=== PATIENT | male | born 2000 | race Caucasian/White ===

== ENCOUNTER 2021-04-20 23:40 | Emergency (ER) | payer OTHER ==
[~2021-04-20] VITALS: Ht 180.3 cm; Wt 68.0 kg
[2021-04-20 23:40] VITALS: BP 150/62
--- NOTE | 2021-04-20 23:47 | NUR ---
PT BIBA BLS TO ER BED 02
--- NOTE | 2021-04-20 23:50 | NUR ---
[facility] at bedside.
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
--- NOTE | 2021-04-21 00:06 | NUR ---
Cleaned wound with NSS.
--- NOTE | 2021-04-21 00:21 | NUR ---
Dr. Burns at bedside to exam patient.
--- NOTE | 2021-04-21 00:30 | NUR ---
Patient 's family at bedside.
[2021-04-21] MEDS ORDERED: ONDANSETRON 4 MG/2 ML VIAL IVP ONE (00:45)
[2021-04-21] MEDS ORDERED: MORPHINE SULFATE 2 MG/ML SYR IVP ONE (00:45)
--- NOTE | 2021-04-21 01:11 | NUR ---
X-ray at bedside.
--- NOTE | 2021-04-21 01:14 | NUR ---
Patient transfer to CT scan via gurney with technology consultant.
--- NOTE | 2021-04-21 01:35 | NUR ---
Patient came back from CT scan.
[2021-04-21 01:52] LABS: CARBON DIOXIDE 25.9 mmol/L (21-32); CREATININE 0.9 mg/dL (0.6-1.3); POTASSIUM 3.9 mmol/L (3.5-5.1); TOTAL BILIRUBIN 0.6 mg/dL (0.0-1.0)
[2021-04-21 01:55] LABS: HEMATOCRIT 43.9 % (36-52); HEMOGLOBIN 14.9 g/dL (12.0-18.0); MEAN CORPUSCULAR HEMOGLOBIN 28 pg (27-31); MEAN CORPUSCULAR HGB CONC 34 g/dL (33-37); MEAN CORPUSCULAR VOLUME 82.6 fL (80-94); PLATELET COUNT (AUTO) 25 K/uL (140-450); RED BLOOD CELL COUNT(AUTO) 5.32 MIL/uL (4.20-6.10); RED CELL DISTRIBUTION WIDTH 14.4 % (11.6-13.7); WHITE BLOOD COUNT (AUTO) 15.4 K/uL (4.5-11.0)
[2021-04-21 01:56] LABS: EOSINOPHILS # (AUTO) 1.2 K/uL (0-0.4); LYMPHOCYTES # (AUTO) 0.8 K/uL (2.0-11.5); MONOCYTES # (AUTO) 0.1 K/uL (0.8-1.0); MONOCYTES % (AUTO) 0.5 % (1.7-9.3); NEUTROPHILS # (AUTO) 13.4 K/uL (1.8-7.7); NEUTROPHILS % (AUTO) 86.9 % (42.2-75.2)
--- NOTE | 2021-04-21 02:50 | NUR ---
Re-position patient.
--- NOTE | 2021-04-21 03:05 | NUR ---
Patient appears to be resting comfortably in bed. Vital Signs within normal limits. Respirations even and unlabored.
--- NOTE | 2021-04-21 03:14 | NUR ---
Report given ADAM Smith, and endorse care of patient.
--- NOTE | 2021-04-21 03:15 | NUR ---
REPORT RECIEVED REPORT FROM ADAM MOORE. ASSUMED CARE OF PT AT THIS TIME. ALL NEEDS MET. WILL CONTINUE TO MONITOR.
[2021-04-21] MEDS ORDERED: IBUP-2218 PO (03:40)
--- NOTE | 2021-04-21 03:53 | NUR ---
LEFT ANKLE WRAPPED WITH YUKI BANDAGE AND PROVIDED PATIENT WITH CRUTCHES PER DR. MARR.
--- NOTE | 2021-04-21 04:00 | NUR ---
YUKI BANDAGE REMOVED PER MD AND APPLIED SPLINT ON LEFT ANKLE.
== END 2021-04-21 04:37 | disposition home or self-care (01) ==
LOC: MED 23:40
DX: S00.212A Abrasion of left eyelid and periocular area, initial encounter (principal); M25.572 Pain in left ankle and joints of left foot; M54.2 Cervicalgia; M54.6 Pain in thoracic spine; Z88.6 Allergy status to analgesic agent; V89.2XXA Person injured in unspecified motor-vehicle accident, traffic, initial encounter; Y93.89 Activity, other specified; Y92.828 Other wilderness area as the place of occurrence of the external cause; Y99.8 Other external cause status
CPT/HCPCS: 29125; 36415; 70450; 72125; 72128; 72131; 73610; 80053; 85025; 96374; 96375; 99284; J2270; J2405; Q0092

== ENCOUNTER 2023-09-26 06:05 | Emergency (ER) | payer SELFPAY ==
[~2023-09-26] VITALS: Ht 177.8 cm; Wt 72.6 kg
[~2023-09-26 06:05] MED LIST: IBUP-2218 PO
[2023-09-26 06:16] VITALS: BP 126/48; PULSE 92; RESP 16; TEMP 97.4; O2SAT 99
[2023-09-26] MEDS: ONDANSETRON 4 MG ODT PO ONE (07:09)
[2023-09-26] MEDS: KETOROLAC 30 MG/ML VIAL IM ONE (07:09)
[2023-09-26] MEDS: LOPERAMIDE 2 MG CAP PO ONE (07:09)
[2023-09-26 07:39] LABS: BASOPHILS % (AUTO) 0.1 % (0.0-2.0); EOSINOPHILS % (AUTO) 0.3 % (0.0-4.0); HEMATOCRIT 45.1 % (36-52); HEMOGLOBIN 14.6 g/dL (12.0-18.0); LYMPHOCYTES # (AUTO) 0.2 K/uL (2.0-11.5); LYMPHOCYTES % (AUTO) 1.6 % (20.5-51.1); MEAN CORPUSCULAR HEMOGLOBIN 27 pg (27-31); MEAN CORPUSCULAR HGB CONC 32 g/dL (33-37); MEAN CORPUSCULAR VOLUME 84.1 fL (80-94); MONOCYTES # (AUTO) 0.9 K/uL (0.8-1.0); MONOCYTES % (AUTO) 8.4 % (1.7-9.3); NEUTROPHILS # (AUTO) 9.2 K/uL (1.8-7.7); NEUTROPHILS % (AUTO) 89.6 % (42.2-75.2); PLATELET COUNT (AUTO) 247 K/uL (140-450); RED BLOOD CELL COUNT(AUTO) 5.37 MIL/uL (4.20-6.10); RED CELL DISTRIBUTION WIDTH 14.2 % (11.6-13.7); WHITE BLOOD COUNT (AUTO) 10.3 K/uL (4.8-10.8)
[2023-09-26 07:53] LABS: ANION GAP 16.5 (8-16); CARBON DIOXIDE 24.7 mmol/L (21-32); POTASSIUM 4.2 mmol/L (3.5-5.1)
[2023-09-26 08:11] LABS: ALBUMIN 4.1 g/dL (3.4-5.0); BILIRUBIN,DIRECT 0.2 mg/dL (0.0-0.3); TOTAL BILIRUBIN 0.9 mg/dL (0.0-1.0); TOTAL PROTEIN, SERUM 7.3 g/dL (6.4-8.2)
[2023-09-26] MEDS ORDERED: LOPE-289 PO (08:16)
[2023-09-26] MEDS ORDERED: ONDA-188 SL (08:16)
[2023-09-26 08:38] VITALS: BP 122/55; PULSE 88; RESP 17; TEMP 98.1; O2SAT 99
== END 2023-09-26 08:41 | disposition home or self-care (01) ==
LOC: MED 06:05
DX: R19.7 Diarrhea, unspecified (principal); R11.10 Vomiting, unspecified; R10.13 Epigastric pain; Z79.1 Long term (current) use of non-steroidal anti-inflammatories (NSAID); Z79.899 Other long term (current) drug therapy
CPT/HCPCS: 36415; 80048; 80076; 83690; 85025; 96372; 99283; J1885; Q0162